=== PATIENT | female | born 1985 | race Caucasian/White ===

== ENCOUNTER 2016-06-27 02:11 | Emergency (ER) | payer OTHER ==
[2016-06-27 02:18] VITALS: O2SAT 96
[2016-06-27 03:34] LABS: % IMMATURE GRANULYOCYTES 0.2 % (0.0-1.1); ABSOLUTE IMMATURE GRANULOCYTES 0.01 10^3/uL (0.00-0.10); ADD DIFF? NO; ADD MORPH? NO; ADD SCAN? NO; ATYPICAL LYMPHOCYTE FLAG 10 (0-99); FRAGMENT RBC FLAG 0 (0-99); HEMATOCRIT 43.5 % (38.0-47.0); HEMOGLOBIN 14.9 g/dL (12.6-16.3); LEFT SHIFT FLG 0 (0-99); LIPEMIA HEMOLYSIS FLAG 90 (0-99); MEAN CELL HEMOGLOBIN 30.3 pg (27.9-34.1); MEAN CELL HEMOGLOBIN CONCENTR. 34.3 g/dL (32.4-36.7); MEAN CELL VOLUME 88.6 fL (81.5-99.8); MEAN PLATELET VOLUME 10.4 fL (8.7-11.7); PLATELET CLUMPS FLAG 0 (0-99); PLATELET COUNT 211 10^3/uL (150-400); RED BLOOD CELL COUNT 4.91 10^6/uL (4.18-5.33); RED CELL DISTRIBUTION WIDTH 11.9 % (11.5-15.2)
[2016-06-27 03:44] LABS: ALANINE AMINOTRANSFERASE 35 IU/L (9-52); ALBUMIN 4.7 g/dL (3.5-5.0); ALKALINE PHOSPHATASE 68 IU/L (38-126); ANION GAP 13 mEq/L (8-16); ASPARTATE AMINOTRANSFERASE 25 IU/L (14-46); BILIRUBIN,TOTAL 0.7 mg/dL (0.1-1.4); CALCIUM 9.7 mg/dL (8.5-10.4); CARBON DIOXIDE 23 mEq/l (22-31); CHLORIDE 109 mEq/L (97-110); CREATININE 0.8 mg/dL (0.6-1.0); GLOMERULAR FILTRATION RATE > 60; GLUCOSE 107 mg/dL (70-100); POTASSIUM 3.9 mEq/L (3.5-5.2); SODIUM 145 mEq/L (134-144); TOTAL PROTEIN 7.7 g/dL (6.3-8.2)
--- NOTE | 2016-06-27 04:13 | EDPHY ---
H & P Stated Complaint: c/o waking with severe mid to L abd pain, some nausea, no vomiting Time Seen by Provider: 06/27/16 03:21 HPI/ROS: HPI The patient presents with an episode of left-sided upper abdominal pain which began at about 1:30 a.m. this morning and woke her from sleep. It was severe, cramping in nature, lasted for about 30 minutes and then began to subside on its own. There is no associated vomiting, diarrhea, constipation, fever. She has had some nausea for the last 2 weeks. She has no prior history of similar pain. She does not drink alcohol. She is 4 months and is breast- feeding.. REVIEW OF SYSTEMS Constitutional: No fever, no chills. Eyes: No discharge. ENT: No sore throat. Cardiovascular: No chest pain, no palpitations. Respiratory: No cough, no shortness of breath. Gastrointestinal: See HPI Genitourinary: No hematuria. Musculoskeletal: No back pain. Skin: No rashes. Neurological: No headache. PMHx: Healthy, 4 months Soc Hx: No alcohol use PHYSICAL General Appearance: Alert, no distress Eyes: Pupils equal and round no pallor or injection ENT, Mouth: Mucous membranes moist Respiratory: There are no retractions, lungs are clear to auscultation Cardiovascular: Regular rate and rhythm Gastrointestinal: Abdomen is soft and non-tender, no masses, bowel sounds normal Neurological: A&O, moves all extremities Skin: Warm and dry, no rashes Musculoskeletal: Neck is supple non tender Extremities: symmetrical, full range of motion Psychiatric: Patient is oriented X 3, there is no agitation Source: Patient - Medical/Surgical History Hx Asthma: No Hx Chronic Respiratory Disease: No Hx Diabetes: No Hx Cardiac Disease: No Hx Renal Disease: No Hx Cirrhosis: No Hx Alcoholism: No Hx HIV/AIDS: No Hx Splenectomy or Spleen Trauma: No Other PMH: c section - Social History Smoking Status: Former smoker Constitutional: Initial Vital Signs Temperature (C) 36.5 C 06/27/16 02:15 Heart Rate 70 06/27/16 02:15 Respiratory Rate 16 06/27/16 02:15 Blood Pressure 118/68 06/27/16 02:15 O2 Sat (%) 96 06/27/16 02:15 O2 Delivery Mode Room Air Allergies/Adverse Reactions: No Known Allergies Allergy (Verified 06/27/16 02:18) Home Medications: Medication Instructions Recorded Calcium [HI-CANDY] 1 tab 03/03/16 Vit27&Calcium/Iron/FA 03/03/16 [] Docusate Sodium [Colace 100 MG (*)] 100 mg PO BID PRN #0 cap 03/07/16 Ibuprofen [Motrin (*)] 600 mg PO Q6HRS PRN #0 tab 03/07/16 Medical Decision Making Procedures: Bedside limited abdominal Ultrasound- performed and interpreted by me. Indication: Pancreatitis Findings: Normal appearing gallbladder, no gallstones, no pericholecystic fluid , no gallbladder wall thickening Impression: No sonographic evidence of coli lithiasis or cholecystitis. Differential Diagnosis: This is a healthy 30-year-old female who is 4 months who presents with an episode of left-sided abdominal pain which awoke her from sleep and has now subsided. There are no associated other symptoms. Her symptoms have now completely resolved and she has no tenderness on exam. Differential diagnosis includes pancreatitis, muscle spasm, diverticulitis. We checked a basic labs which did reveal a slightly elevated lipase which raises suspicion for pancreatitis given the location of her pain. She does not drink alcohol, I performed a right upper quadrant ultrasound which showed no gallstones, thus the cause of her pancreatitis if that is truly what is going on is not clear. I have explained this to her. I have advised her to monitor her symptoms and if they recur she should follow up with her primary care doctor. I have instructed her that she can take anti-inflammatories if the pain develops again. She is in agreement with this plan and will be discharged. - Data Points Laboratory Results: Laboratory Results 06/27/16 02:45 06/27/16 02:45 06/27/16 06/27/16 02:45 02:45 WBC 5.67 10^3/uL 10^3/uL (3.80-9.50) RBC 4.91 10^6/uL 10^6/uL (4.18-5.33) Hgb 14.9 g/dL g/dL (12.6-16.3) Hct 43.5 % % (38.0-47.0) MCV 88.6 fL fL (81.5-99.8) MCH 30.3 pg pg (27.9-34.1) MCHC 34.3 g/dL g/dL (32.4-36.7) RDW 11.9 % % (11.5-15.2) Plt Count 211 10^3/uL 10^3/uL (150-400) MPV 10.4 fL fL (8.7-11.7) Neut % (Auto) 44.6 % % (39.3-74.2) Lymph % (Auto) 41.6 % % (15.0-45.0) [place] % (Auto) 11.5 % % (4.5-13.0) Eos % (Auto) 1.6 % % (0.6-7.6) Baso % (Auto) 0.5 % % (0.3-1.7) Nucleat RBC Rel Count 0.0 % % (0.0-0.2) Absolute Neuts (auto) 2.53 10^3/uL 10^3/uL (1.70-6.50) Absolute Lymphs (auto) 2.36 10^3/uL 10^3/uL (1.00-3.00) Absolute Monos (auto) 0.65 10^3/uL 10^3/uL (0.30-0.80) Absolute Eos (auto) 0.09 10^3/uL 10^3/uL (0.03-0.40) Absolute Basos (auto) 0.03 10^3/uL 10^3/uL (0.02-0.10) Absolute Nucleated RBC 0.00 10^3/uL 10^3/uL (0-0.01) Immature Gran % 0.2 % % (0.0-1.1) Immature Gran # 0.01 10^3/uL 10^3/uL (0.00-0.10) Sodium 145 mEq/L H mEq/L (134-144) Potassium 3.9 mEq/L mEq/L (3.5-5.2) Chloride 109 mEq/L mEq/L (97-110) Carbon Dioxide 23 mEq/l mEq/l (22-31) Anion Gap 13 mEq/L mEq/L (8-16) BUN 14 mg/dL mg/dL (7-23) Creatinine 0.8 mg/dL mg/dL (0.6-1.0) Estimated GFR > 60 Glucose 107 mg/dL H mg/dL (70-100) Calcium 9.7 mg/dL mg/dL (8.5-10.4) Total Bilirubin 0.7 mg/dL mg/dL (0.1-1.4) AST 25 IU/L IU/L (14-46) ALT 35 IU/L IU/L (9-52) Alkaline Phosphatase 68 IU/L IU/L (38-126) Total Protein 7.7 g/dL g/dL (6.3-8.2) Albumin 4.7 g/dL g/dL (3.5-5.0) Lipase 323.0 IU/L H IU/L (23-300) Departure - Departure Disposition: Home, Routine, Self-Care Clinical Impression: Pancreatitis, Abdominal pain Condition: Good Instructions: Pancreatitis (ED) Additional Instructions: Your blood test today showed an elevated lipase level which is suggestive of pancreatitis. You should monitor your symptoms and if they return, you can take ibuprofen or Tylenol. If the pain continues and is severe, you can come back to the emergency room to be re-evaluated. Please follow-up with your primary care doctor within the next 1 week if your still having pain. Referrals: NONE *PRIMARY CARE P,. [Primary Care Provider] - As per Instructions
[2016-06-27 04:37] VITALS: BP 115/71; PULSE 73; RESP 18; TEMP 98.2
== END 2016-06-27 04:35 | disposition home or self-care (01) ==
DX: K85.90 Acute pancreatitis without necrosis or infection, unspecified (principal); Z87.891 Personal history of nicotine dependence